=== PATIENT | female | born 1950 | race Caucasian/White ===

== ENCOUNTER 2018-05-09 12:38 | Inpatient (IN) | payer OTHER, MEDICAID ==
[~2018-05-09] VITALS: Ht 152.4 cm; Wt 91.7 kg
[2018-05-09 12:40] VITALS: Ht 152.4 cm; Wt 91.7 kg
[2018-05-09 13:20] LABS: PLATELET COUNT 156 x10^3mcL (130-400)
[2018-05-09 13:32] LABS: RED CELL DISTRIBUTION WIDTH 15.2 % (11.5-14.5)
[2018-05-09 13:36] LABS: CARBON DIOXIDE 26.2 mmol/L (21-32); CHLORIDE SERUM 100 mmol/L (98-107); CREATININE SERUM 0.8 mg/dL (0.6-1.0); GFR1 > 60 mL/min; GLUCOSE SERUM 108 mg/dL (74-106); POTASSIUM SERUM 3.6 mmol/L (3.5-5.1); SODIUM SERUM 134 mmol/L (136-145)
[2018-05-09 13:40] LABS: ALKALINE PHOSPHATASE 131 U/L (46-116); ALT/SGPT 83 U/L (14-59); AST/SGOT 51 U/L (15-37); BILIRUBIN TOTAL 0.6 mg/dL (0.20-1.00); TOTAL PROTEIN, SERUM 7.6 g/dL (6.4-8.2)
[2018-05-09 13:44] LABS: ALBUMIN 3.3 g/dL (3.4-5.0)
[2018-05-09 14:04] LABS: ATYPICAL LYMPH 3 %; BAND NEUTROPHIL 7 % (0-10); MONOCYTE 6 % (0-7); PLATELET MORPHOLOGY PLATELETS NORMAL; SEGMENTED NEUTROPHILS 24 % (37-75); rbc morphology (normal/abnorm) NORMAL (NORMAL)
[2018-05-09] MEDS ORDERED: GOOD SENSE ASPI81 M3 PO (14:54)
[2018-05-09] MEDS ORDERED: SIMVASTATIN20 M1 PO (14:55)
[2018-05-09 15:42] LABS: MAGNESIUM 1.7 mg/dL (1.8-2.4); PHOSPHOROUS 3.2 mg/dL (2.5-4.9)
[2018-05-09 15:43] LABS: CHOLESTEROL/HDL RATIO 7.1
[2018-05-09 15:48] VITALS: BP 134/72
[2018-05-09 15:51] LABS: FREE T4 1.07 ng/dL (0.76-1.46); FREE THYROXINE INDEX 3.5 ug/dL (1.4-4.5); T4(THYROXINE) 11.7 ug/dL (4.7-13.3)
[2018-05-09 16:01] LABS: T3 TOTAL 1.24 ng/mL
[2018-05-09 20:24] VITALS: BP 137/66
[2018-05-09 22:41] LABS: microscopic required? NO
[2018-05-10] VITALS (8 sets, daily range): BP systolic 118–163; BP diastolic 66–78
[2018-05-10 00:37] LABS: UA SPECIFIC GRAVITY <=1.005 (1.005-1.035); urine erythrocyte NEGATIVE (NEGATIVE)
[2018-05-10 06:53] LABS: BASOPHIL % 0.2 % (0-2); PLATELET COUNT 134 x10^3mcL (130-400)
[2018-05-10 07:09] LABS: CALCIUM 8.2 mg/dL (8.5-10.1); CARBON DIOXIDE 25.2 mmol/L (21-32); CHLORIDE SERUM 104 mmol/L (98-107); CREATININE SERUM 0.8 mg/dL (0.6-1.0); GFR1 > 60 mL/min; GLUCOSE SERUM 106 mg/dL (74-106); MAGNESIUM 1.8 mg/dL (1.8-2.4); POTASSIUM SERUM 4.3 mmol/L (3.5-5.1); SODIUM SERUM 139 mmol/L (136-145)
[2018-05-10 07:29] LABS: RED CELL DISTRIBUTION WIDTH 14.9 % (11.5-14.5)
[2018-05-10] MEDS ORDERED: BENICAR5 MG PO (10:03)
[2018-05-11 05:44] VITALS: BP 146/77
[2018-05-11 06:22] LABS: CALCIUM 8.3 mg/dL (8.5-10.1); CARBON DIOXIDE 27.8 mmol/L (21-32); CHLORIDE SERUM 108 mmol/L (98-107); CREATININE SERUM 0.7 mg/dL (0.6-1.0); GFR1 > 60 mL/min; GLUCOSE SERUM 113 mg/dL (74-106); PHOSPHOROUS 3.3 mg/dL (2.5-4.9); POTASSIUM SERUM 4.2 mmol/L (3.5-5.1); SODIUM SERUM 141 mmol/L (136-145)
[2018-05-11 07:19] LABS: BASOPHIL % 0.5 % (0-2)
[2018-05-11 07:25] LABS: PLATELET COUNT 110 x10^3mcL (130-400); RED CELL DISTRIBUTION WIDTH 15.2 % (11.5-14.5)
[2018-05-11 09:27] VITALS: BP 170/80
[2018-05-11 13:48] VITALS: BP 144/79
[2018-05-11 16:51] VITALS: BP 133/55
[2018-05-11 20:52] VITALS: BP 128/68
[2018-05-12 06:12] VITALS: BP 137/73
[2018-05-12 06:13] LABS: CALCIUM 8.7 mg/dL (8.5-10.1); CARBON DIOXIDE 24.2 mmol/L (21-32); CHLORIDE SERUM 107 mmol/L (98-107); CREATININE SERUM 0.7 mg/dL (0.6-1.0); GFR1 > 60 mL/min; GLUCOSE SERUM 122 mg/dL (74-106); SODIUM SERUM 142 mmol/L (136-145)
[2018-05-12 06:47] LABS: BASOPHIL % 0.3 % (0-2)
[2018-05-12] MEDS ORDERED: LEVAQUIN750 MG PO (07:50)
[2018-05-12] MEDS ORDERED: PREDNISONE50 MG PO (07:51)
[2018-05-12] MEDS ORDERED: LAC PO (07:51)
[2018-05-12 08:09] LABS: PLATELET COUNT 109 x10^3mcL (130-400); RED CELL DISTRIBUTION WIDTH 14.9 % (11.5-14.5)
[2018-05-12 08:52] VITALS: BP 145/69
[2018-05-12 10:53] VITALS: BP 145/69
== END 2018-05-12 11:35 | disposition home or self-care (01) | DRG 206 ==
LOC: ED 12:38 → DU 14:44
PROVIDERS: Emergency Medicine; Internal Medicine
DX: M94.0 Chondrocostal junction syndrome [Tietze] (principal); E44.1 Mild protein-calorie malnutrition; R65.10 Systemic inflammatory response syndrome (SIRS) of non-infectious origin without acute organ dysfunction; D70.9 Neutropenia, unspecified; E83.42 Hypomagnesemia; J45.909 Unspecified asthma, uncomplicated; I10 Essential (primary) hypertension; E78.5 Hyperlipidemia, unspecified; I36.1 Nonrheumatic tricuspid (valve) insufficiency; Z79.82 Long term (current) use of aspirin; Z68.36 Body mass index [BMI] 36.0-36.9, adult; Z87.891 Personal history of nicotine dependence
CPT/HCPCS: 82962; 83880; 84439; 87804; J0696; J1885; J1956; J7030; J7512; J7620; Q0092

== ENCOUNTER 2018-06-12 12:05 | Inpatient (IN) | payer OTHER, MEDICAID ==
[~2018-06-12] VITALS: Ht 157.5 cm; Wt 89.0 kg
[~2018-06-12 12:05] MED LIST: BENICAR5 MG PO; GOOD SENSE ASPI81 M3 PO; LAC PO; LEVAQUIN750 MG PO; PREDNISONE50 MG PO; SIMVASTATIN20 M1 PO
[2018-06-12 12:10] VITALS: Ht 157.5 cm; Wt 89.0 kg
[2018-06-12 13:25] LABS: CALCIUM 8.6 mg/dL (8.5-10.1); CARBON DIOXIDE 22.8 mmol/L (21-32); CREATININE SERUM 1.2 mg/dL (0.6-1.0); POTASSIUM SERUM 4.5 mmol/L (3.5-5.1)
[2018-06-12 13:29] LABS: BILIRUBIN TOTAL 0.6 mg/dL (0.20-1.00)
[2018-06-12 13:33] LABS: PLATELET COUNT 112 x10^3mcL (130-400); RED CELL DISTRIBUTION WIDTH 17.1 % (11.5-14.5)
[2018-06-12 13:39] LABS: ALBUMIN 2.2 g/dL (3.4-5.0)
[2018-06-12 13:53] LABS: microscopic required? YES; urine erythrocyte TRACE (NEGATIVE)
[2018-06-12 15:15] LABS: BAND NEUTROPHIL 7 % (0-10); BASOPHIL 1 % (0-2); BLAST 2 % (0); MONOCYTE 30 % (0-7); SEGMENTED NEUTROPHILS 32 % (37-75); rbc morphology (normal/abnorm) ABNORMAL (NORMAL)
[2018-06-12 15:16] LABS: PLATELET MORPHOLOGY PLATELETS DECREASED
[2018-06-12] MEDS ORDERED: SIMVASTATIN20 M1 PO (16:18)
[2018-06-12] MEDS ORDERED: LAC PO (16:18)
[2018-06-12] MEDS ORDERED: LEVAQUIN750 MG PO (16:18)
[2018-06-12] MEDS ORDERED: ASPIRIN ADULT L81 M5 PO (16:18)
[2018-06-12] MEDS ORDERED: BENICAR HCT1 TAB PO (16:19)
[2018-06-12 16:34] LABS: PHOSPHOROUS 4.3 mg/dL (2.5-4.9)
[2018-06-12 16:36] LABS: CHOLESTEROL/HDL RATIO 5.4
[2018-06-12 16:39] LABS: T3 TOTAL 0.75 ng/mL
[2018-06-12 16:54] LABS: FREE THYROXINE INDEX 1.9 ug/dL (1.4-4.5)
[2018-06-12 17:53] VITALS: BP 124/57
[2018-06-13 05:18] VITALS: BP 128/61
[2018-06-13 07:18] LABS: CALCIUM 8.2 mg/dL (8.5-10.1); CARBON DIOXIDE 23.3 mmol/L (21-32); CHLORIDE SERUM 101 mmol/L (98-107); CREATININE SERUM 0.9 mg/dL (0.6-1.0); GFR1 > 60 mL/min; GLUCOSE SERUM 104 mg/dL (74-106); POTASSIUM SERUM 4.4 mmol/L (3.5-5.1); SODIUM SERUM 137 mmol/L (136-145)
[2018-06-13 08:24] LABS: PLATELET COUNT 103 x10^3mcL (130-400); RED CELL DISTRIBUTION WIDTH 17.1 % (11.5-14.5)
[2018-06-13 09:20] VITALS: BP 133/58
[2018-06-13 11:00] LABS: BAND NEUTROPHIL 8 % (0-10); BASOPHIL 0 % (0-2); MONOCYTE 32 % (0-7); SEGMENTED NEUTROPHILS 30 % (37-75)
[2018-06-13 11:04] LABS: rbc morphology (normal/abnorm) ABNORMAL (NORMAL)
[2018-06-13 11:06] LABS: burr cell (echinocyte) 1+
[2018-06-13 18:01] VITALS: BP 124/54
[2018-06-13 21:23] VITALS: BP 126/49
[2018-06-14 04:54] VITALS: BP 135/63
[2018-06-14 07:23] LABS: CALCIUM 8.2 mg/dL (8.5-10.1); CARBON DIOXIDE 23.3 mmol/L (21-32); CHLORIDE SERUM 101 mmol/L (98-107); CREATININE SERUM 0.8 mg/dL (0.6-1.0); GFR1 > 60 mL/min; GLUCOSE SERUM 98 mg/dL (74-106); POTASSIUM SERUM 4.2 mmol/L (3.5-5.1); SODIUM SERUM 135 mmol/L (136-145)
[2018-06-14 08:19] LABS: PLATELET COUNT 97 x10^3mcL (130-400); RED CELL DISTRIBUTION WIDTH 15.6 % (11.5-14.5)
[2018-06-14 10:18] VITALS: BP 133/70
[2018-06-14 10:28] LABS: BASOPHIL 0 % (0-2); SEGMENTED NEUTROPHILS 34 % (37-75)
[2018-06-14 10:29] LABS: rbc morphology (normal/abnorm) ABNORMAL (NORMAL)
[2018-06-14 10:30] LABS: MONOCYTE 32 % (0-7); burr cell (echinocyte) 1+
[2018-06-14 10:33] LABS: BAND NEUTROPHIL 10 % (0-10)
[2018-06-14 17:04] VITALS: BP 132/61
[2018-06-14 20:40] VITALS: BP 124/60
[2018-06-14 20:42] LABS: AMPHETAMINE QUAL UR NONE DETECTED (See below)
[2018-06-15 05:33] VITALS: BP 132/62
[2018-06-15 06:49] LABS: CARBON DIOXIDE 19.8 mmol/L (21-32); CHLORIDE SERUM 102 mmol/L (98-107); CREATININE SERUM 0.7 mg/dL (0.6-1.0); GFR1 > 60 mL/min; GLUCOSE SERUM 87 mg/dL (74-106); POTASSIUM SERUM 3.9 mmol/L (3.5-5.1); SODIUM SERUM 133 mmol/L (136-145)
[2018-06-15 07:14] LABS: PLATELET COUNT 93 x10^3mcL (130-400); RED CELL DISTRIBUTION WIDTH 15.8 % (11.5-14.5)
[2018-06-15 09:48] VITALS: BP 145/62
[2018-06-15 10:27] LABS: ATYPICAL LYMPH 6 %; BAND NEUTROPHIL 32 % (0-10); SEGMENTED NEUTROPHILS 32 % (37-75); rbc morphology (normal/abnorm) ABNORMAL (NORMAL)
[2018-06-15 10:28] LABS: PLATELET MORPHOLOGY PLATELETS DECREASED
[2018-06-15 10:56] VITALS: BP 151/63
[2018-06-15 13:07] VITALS: BP 113/54
[2018-06-15 17:00] VITALS: BP 120/57
[2018-06-15 20:55] VITALS: BP 142/62
[2018-06-16 05:53] VITALS: BP 126/60
[2018-06-16 07:46] LABS: ALBUMIN 1.9 g/dL (3.4-5.0); ALKALINE PHOSPHATASE 125 U/L (46-116); ALT/SGPT 28 U/L (14-59); AST/SGOT 22 U/L (15-37); BILIRUBIN TOTAL 0.43 mg/dL (0.20-1.00); CARBON DIOXIDE 22.7 mmol/L (21-32); CHLORIDE SERUM 102 mmol/L (98-107); CREATININE SERUM 0.8 mg/dL (0.6-1.0); GFR1 > 60 mL/min; GLUCOSE SERUM 106 mg/dL (74-106); MAGNESIUM 1.8 mg/dL (1.8-2.4); POTASSIUM SERUM 4.2 mmol/L (3.5-5.1); SODIUM SERUM 135 mmol/L (136-145); TOTAL PROTEIN, SERUM 6.4 g/dL (6.4-8.2)
[2018-06-16 08:26] LABS: PLATELET COUNT 83 x10^3mcL (130-400); RED CELL DISTRIBUTION WIDTH 17.5 % (11.5-14.5)
[2018-06-16 09:52] VITALS: BP 130/61
[2018-06-16 11:53] LABS: ATYPICAL LYMPH 2 %; BAND NEUTROPHIL 1 % (0-10); BASOPHIL 0 % (0-2); MONOCYTE 27 % (0-7); SEGMENTED NEUTROPHILS 31 % (37-75)
[2018-06-16 11:55] LABS: PLATELET MORPHOLOGY PLATELETS DECREASED; rbc morphology (normal/abnorm) ABNORMAL (NORMAL)
[2018-06-16 16:45] VITALS: BP 111/51
[2018-06-16 20:48] VITALS: BP 106/59
[2018-06-17 05:50] VITALS: BP 108/53
[2018-06-17 09:18] LABS: COMPLEMENT C3 142 mg/dL (82-167); COMPLEMENT C4 30 mg/dL (14-44)
[2018-06-17 10:02] VITALS: BP 105/52
[2018-06-17 10:49] LABS: CALCIUM 8.7 mg/dL (8.5-10.1); POTASSIUM SERUM 4.3 mmol/L (3.5-5.1)
[2018-06-17 10:56] LABS: PLATELET COUNT 99 x10^3mcL (130-400); RED CELL DISTRIBUTION WIDTH 17.9 % (11.5-14.5)
[2018-06-17 11:27] LABS: ATYPICAL LYMPH 8 %; BAND NEUTROPHIL 0 % (0-10); MONOCYTE 18 % (0-7); SEGMENTED NEUTROPHILS 44 % (37-75)
[2018-06-17 11:28] LABS: BASOPHIL 0 % (0-2); PLATELET MORPHOLOGY PLATELETS DECREASED; rbc morphology (normal/abnorm) ABNORMAL (NORMAL)
[2018-06-17 17:40] VITALS: BP 130/55
[2018-06-17 20:42] VITALS: BP 129/58
[2018-06-18 05:12] VITALS: BP 130/59
[2018-06-18 07:12] LABS: CALCIUM 8.4 mg/dL (8.5-10.1); CARBON DIOXIDE 25.1 mmol/L (21-32); CHLORIDE SERUM 105 mmol/L (98-107); CREATININE SERUM 0.9 mg/dL (0.6-1.0); GFR1 > 60 mL/min; GLUCOSE SERUM 100 mg/dL (74-106); SODIUM SERUM 140 mmol/L (136-145)
[2018-06-18 07:50] LABS: PLATELET COUNT 101 x10^3mcL (130-400); RED CELL DISTRIBUTION WIDTH 17.9 % (11.5-14.5)
[2018-06-18 08:35] VITALS: BP 154/57
[2018-06-18 09:17] LABS: COMPLEMENT TOTAL/CH50 > 60 U/mL (>41)
[2018-06-18 09:35] VITALS: BP 154/57
[2018-06-18 11:18] LABS: ATYPICAL LYMPH 7 %; BAND NEUTROPHIL 1 % (0-10); MONOCYTE 19 % (0-7); PLATELET MORPHOLOGY PLATELETS DECREASED; SEGMENTED NEUTROPHILS 33 % (37-75); rbc morphology (normal/abnorm) NORMAL (NORMAL)
[2018-06-18 14:18] VITALS: BP 101/45
[2018-06-18 14:31] LABS: cnab c-anca <1:20 titer (Neg:<1:20); cnab p-anca <1:20 titer (Neg:<1:20)
[2018-06-18 17:26] VITALS: BP 116/52
[2018-06-18 20:17] VITALS: BP 121/49
[2018-06-19 05:31] VITALS: BP 105/50
[2018-06-19 08:49] VITALS: BP 107/47
[2018-06-19 09:25] LABS: CALCIUM 9.1 mg/dL (8.5-10.1); CARBON DIOXIDE 24.5 mmol/L (21-32); POTASSIUM SERUM 4.1 mmol/L (3.5-5.1)
[2018-06-19 09:37] LABS: PLATELET COUNT 104 x10^3mcL (130-400); RED CELL DISTRIBUTION WIDTH 17.5 % (11.5-14.5)
[2018-06-19 10:35] LABS: ATYPICAL LYMPH 4 %; BAND NEUTROPHIL 0 % (0-10); BASOPHIL 0 % (0-2); MONOCYTE 23 % (0-7); SEGMENTED NEUTROPHILS 36 % (37-75); rbc morphology (normal/abnorm) ABNORMAL (NORMAL)
[2018-06-19 16:33] VITALS: BP 124/53
[2018-06-19 20:36] VITALS: BP 116/41
[2018-06-20 05:49] VITALS: BP 120/58
[2018-06-20 06:26] LABS: CALCIUM 8.4 mg/dL (8.5-10.1); CARBON DIOXIDE 25.3 mmol/L (21-32); POTASSIUM SERUM 4.7 mmol/L (3.5-5.1)
[2018-06-20 07:33] LABS: BASOPHIL % 0 % (0-2); PLATELET COUNT 108 x10^3mcL (130-400); RED CELL DISTRIBUTION WIDTH 17.8 % (11.5-14.5)
[2018-06-20 08:51] VITALS: BP 147/64
[2018-06-20 12:33] LABS: rbc morphology (normal/abnorm) ABNORMAL (NORMAL)
[2018-06-20] MEDS ORDERED: BACDS PO (16:22)
[2018-06-20] MEDS ORDERED: ROC1I IV (16:23)
[2018-06-20 16:25] VITALS: BP 147/64
[2018-06-20 20:57] VITALS: BP 103/52
[2018-06-21 05:45] VITALS: BP 114/53
[2018-06-21 06:36] LABS: CALCIUM 8.7 mg/dL (8.5-10.1); CARBON DIOXIDE 23.1 mmol/L (21-32); CHLORIDE SERUM 100 mmol/L (98-107); CREATININE SERUM 0.8 mg/dL (0.6-1.0); GFR1 > 60 mL/min; GLUCOSE SERUM 97 mg/dL (74-106); POTASSIUM SERUM 4.4 mmol/L (3.5-5.1); SODIUM SERUM 134 mmol/L (136-145)
[2018-06-21 08:15] LABS: PLATELET COUNT 93 x10^3mcL (130-400); RED CELL DISTRIBUTION WIDTH 17.5 % (11.5-14.5)
[2018-06-21 08:55] VITALS: BP 122/61
[2018-06-21 10:00] VITALS: BP 148/121
[2018-06-21 12:18] VITALS: BP 123/58
[2018-06-21 12:43] LABS: ATYPICAL LYMPH 7 %; BAND NEUTROPHIL 6 % (0-10); MONOCYTE 23 % (0-7); SEGMENTED NEUTROPHILS 29 % (37-75); rbc morphology (normal/abnorm) ABNORMAL (NORMAL)
[2018-06-21 12:44] LABS: PLATELET MORPHOLOGY PLATELETS DECREASED
[2018-06-21 16:32] VITALS: BP 115/53
[2018-06-21 20:32] VITALS: BP 103/48
[2018-06-22 05:34] VITALS: BP 141/63
[2018-06-22 06:50] LABS: CALCIUM 8.6 mg/dL (8.5-10.1); CARBON DIOXIDE 23.6 mmol/L (21-32); POTASSIUM SERUM 4.9 mmol/L (3.5-5.1)
[2018-06-22 08:29] LABS: PLATELET COUNT 103 x10^3mcL (130-400)
[2018-06-22 09:01] VITALS: BP 148/69
[2018-06-22 12:24] LABS: ATYPICAL LYMPH 1 %; BAND NEUTROPHIL 0 % (0-10); BASOPHIL 0 % (0-2); MONOCYTE 31 % (0-7); SEGMENTED NEUTROPHILS 45 % (37-75)
[2018-06-22 12:25] LABS: PLATELET MORPHOLOGY PLATELETS DECREASED; rbc morphology (normal/abnorm) ABNORMAL (NORMAL)
[2018-06-22 12:59] VITALS: BP 95/40
[2018-06-22 17:35] VITALS: BP 127/37
[2018-06-22 19:52] VITALS: BP 104/51
[2018-06-23 05:12] VITALS: BP 109/51
[2018-06-23 09:21] LABS: CALCIUM 8.5 mg/dL (8.5-10.1); CARBON DIOXIDE 22.7 mmol/L (21-32); CREATININE SERUM 1.5 mg/dL (0.6-1.0); POTASSIUM SERUM 4.9 mmol/L (3.5-5.1)
[2018-06-23 09:49] LABS: PLATELET COUNT 107 x10^3mcL (130-400); RED CELL DISTRIBUTION WIDTH 17.4 % (11.5-14.5)
[2018-06-23 10:01] VITALS: BP 104/44
[2018-06-23 11:12] LABS: ATYPICAL LYMPH 5 %; BAND NEUTROPHIL 7 % (0-10); BASOPHIL 0 % (0-2); MONOCYTE 19 % (0-7); SEGMENTED NEUTROPHILS 59 % (37-75)
[2018-06-23 11:13] LABS: PLATELET MORPHOLOGY PLATELETS DECREASED; rbc morphology (normal/abnorm) ABNORMAL (NORMAL)
[2018-06-23 12:28] LABS: BLAST 0 % (0); PATH REVIEW for HEMA NO
[2018-06-23 12:53] VITALS: BP 99/47
[2018-06-23 12:58] VITALS: BP 106/47
[2018-06-23 15:50] VITALS: BP 106/47
[2018-06-23 17:33] VITALS: BP 100/65
== END 2018-06-23 18:14 | disposition short-term general hospital (02) | DRG 871 ==
LOC: ED 12:05 → DU 14:53 → MU 14:53 → DU 06-20 21:01
PROVIDERS: Emergency Medicine; Family Medicine; Internal Medicine; Pediatrics Pediatric Cardiology
DX: A41.9 Sepsis, unspecified organism (principal); N17.0 Acute kidney failure with tubular necrosis; E43 Unspecified severe protein-calorie malnutrition; L03.116 Cellulitis of left lower limb; C93.10 Chronic myelomonocytic leukemia not having achieved remission; E87.1 Hypo-osmolality and hyponatremia; D61.818 Other pancytopenia; I10 Essential (primary) hypertension; D64.9 Anemia, unspecified; E66.9 Obesity, unspecified; Z66 Do not resuscitate; Z79.82 Long term (current) use of aspirin
CPT/HCPCS: 83520; 83880; 84439; 86225; 86256; 88344; 97110-GP; 97116-GP; G0480; J0696; J1644; J1885; J2405; J2543; J3370; J7030; J7050; P9016; Q0092; Q0163